=== PATIENT | female | born 1990 | race African-American/Black ===

== ENCOUNTER 2020-12-22 09:10 | Emergency (ER) | payer MEDICAID ==
[2020-12-22] MEDS ORDERED: ENDOCET 5-3251 EACH PO ×2 (14:25→14:27)
== END 2020-12-22 16:28 | disposition home or self-care (01) ==
LOC: ER1 09:10
DX: M54.16 Radiculopathy, lumbar region (principal); E66.01 Morbid (severe) obesity due to excess calories
CPT/HCPCS: 72128; 72131; 84703; 96372; 96374; 97162; 99284; J1170; J1885

== ENCOUNTER 2020-12-22 23:10 | Emergency (ER) | payer OTHER ==
[~2020-12-22 23:10] MED LIST: ENDOCET 5-3251 EACH PO
[2020-12-23 02:08] LABS: HEMOGLOBIN 11.3 gm/dl (12.3-15.3); RED BLOOD COUNT 4.78 M/UL (4.00-5.10); WHITE BLOOD COUNT 13.1 K/UL (4.5-11.0)
[2020-12-23 02:29] LABS: BUN/CREATININE RATIO 18 (0-10)
== END 2020-12-23 03:36 | disposition home or self-care (01) ==
LOC: ER1 23:10
PROVIDERS: Family Medicine
DX: M54.9 Dorsalgia, unspecified (principal); M79.606 Pain in leg, unspecified; E78.5 Hyperlipidemia, unspecified; I10 Essential (primary) hypertension; E11.9 Type 2 diabetes mellitus without complications; E66.01 Morbid (severe) obesity due to excess calories; Z88.8 Allergy status to other drugs, medicaments and biological substances; Z79.899 Other long term (current) drug therapy; Z79.4 Long term (current) use of insulin
CPT/HCPCS: 36415; 71045; 80053; 82550; 82553; 83874; 84484; 85025; 85652; 86140; 96372; 99284; J1885